=== PATIENT | female | born 1980 | race Caucasian/White ===

== ENCOUNTER → 2023-11-06 12:31 | Outpatient (REF) | payer BC, SELFPAY | LOC: WDC 12:31 | PROVIDERS: ATTENDING PHYSICIAN Obstetrics & Gynecology; FAMILY PHYSICIAN Family Medicine | DX: Z12.31 Encounter for screening mammogram for malignant neoplasm of breast (principal) | CPT/HCPCS: 77063; 77067 ==

== ENCOUNTER → 2024-02-22 16:42 | Outpatient (REF) | payer BC, SELFPAY | LOC: RAD 16:42 | PROVIDERS: ATTENDING PHYSICIAN Nurse Practitioner Family; FAMILY PHYSICIAN Family Medicine | DX: M54.50 Low back pain, unspecified (principal) | CPT/HCPCS: 72110; 72220 ==

== ENCOUNTER → 2024-11-16 13:52 | Outpatient (REF) | payer BC, SELFPAY | LOC: WDC 13:52 | PROVIDERS: ATTENDING PHYSICIAN Obstetrics & Gynecology; FAMILY PHYSICIAN Family Medicine | DX: Z12.31 Encounter for screening mammogram for malignant neoplasm of breast (principal) | CPT/HCPCS: 77063; 77067 ==

== ENCOUNTER 2024-12-19 07:59 | Emergency (ER) | payer BC, SELFPAY ==
[2024-12-19 08:00] VITALS: BP 132/76
--- NOTE | 2024-12-19 08:30 | ED.GENMED ---
History of Present Illness
General
Chief Complaint: Musculo-Skeletal Complaint
Source: patient
Time Seen by Provider: 12/19/24 08:04
History of Present Illness
History of Present Illness:
44-year-old female with no significant past medical history presents to the emergency department for evaluation after she was walking out of her house and accidentally stepped on a Nerf gun on the ground that she did not see, twisted her left ankle
causing her to fall to the ground. Since that time she has had some pain and swelling diffusely across the ankle but noting pain with palpation along the medial malleolus. She notes previous history of injury and surgery to the right ankle but no
previous injury to the left. No other injuries were. She did not take anything for the pain prior to arrival.
Past History
Past History
ED Past Medical History: None
ED Past Surgical History: Gynecological and Orthopedic
Social History
Tobacco: Non-smoker
Alcohol: None
Drug: None
Personal:
Living: with family
Review of Systems
Review of Systems
All Other Systems: ROS reviewed and negative except as documented in HPI and ROS
Phy Exam
Physical Exam
Physical Exam:
GENERAL: Alert , in no apparent distress
EYE: conjunctiva clear
Head: Normocephalic atraumatic
NECK: Supple,
ENT: mmm.
LUNGS: no acute respiratory distress
NEUROLOGICAL: Alert and oriented
SKIN: Warm and dry, skin intact.
MUSCULOSKELETAL: LLE: Mild STS laterally with minimal ttp, ttp moreso over the medial malleolus. No proximal tib/tif ttp. No tenderness at the base of the fifth metatarsal. Calcaneal tendon is intact. Easily palpable pedal and tibial pulse. Cap
refill less than 2 seconds and sensation is grossly intact to light touch. Remainder of extremities within normal limits
PSYCH: Normal and appropriate interaction.
Scores
Heart Failure Risk
Heart Failure Risk Score: Not Applicable
Heart Score for Chest Pain Patients
STEMI patient?: Not applicable
Withdrawal Assessment of Alcohol
Withdrawal Assessment Completed?: Not applicable
Course
Orders/Labs/Results
Orders:
Orders
12/19/24 08:04
CR Ankle - Left Min 3 Views Urgent
Comment:
Reason For Exam: pain, edema
CR Foot - Left Min 3 Views Urgent
Comment:
Reason For Exam: pain, edema
12/19/24 08:29
Ortho Boot Left- Treatment ONCE
Short or tall?: Short
12/19/24 08:30
Ibuprofen [Motrin] 600 mg PO NOW STA
Vital Signs
Initial and Last Documented VS:
Initial Vital Signs
Temp Pulse Resp BP Pulse Ox
98.6 F 55 18 132/76 100
12/19/24 08:00 12/19/24 08:00 12/19/24 08:00 12/19/24 08:00 12/19/24 08:00
Last Documented Vital Signs
Temp Pulse Resp BP Pulse Ox
98.6 F 55 18 132/76 100
12/19/24 08:00 12/19/24 08:00 12/19/24 08:00 12/19/24 08:00 12/19/24 08:32
MDM/Problems Addressed
Differential Diagnosis Includes:
Sprain
Fracture
Dislocation
Contusion
MDM/Problems Addressed:
44-year-old female presenting to the ER for evaluation of left ankle pain following an accidental injury this morning. X-rays of the foot and ankle ordered show a possible avulsion fracture off of the medial malleolus and questionably the talus.
Given the tenderness in this area we will place an orthopedic boot, patient already has crutches. NSAIDs/Tylenol as needed for pain. RICE recommendations discussed. Patient will follow-up with [facility] orthopedics where she has been seen as a
patient in the past. Stable for discharge home.
*Radiology
Radiology exam reviewed: preliminary read by ED provider (? avulsion fx off talus and medial malleolus)
*Pulse Oximetry
SaO2: 100
Oxygen Mode of Delivery: Room air
Patient hypoxic: no
*Critical Care Note
Total Time (30-74mins, 75-104mins- exclusive of procedures): Not Applicable
ED Attending Note
-
Portions of this chart may have been created with voice recognition software.� Occasional wrong word or��sound alike� substitutions may have occurred due to the inherent limitations of voice recognition software.
Discharge Plan
Departure
Patient Disposition: Home (Routine Discharge)
Date of Disposition: 12/19/24
Time of Disposition: 08:30
Patient with high blood pressure during this ER visit?: No
Discharge Problem:
Avulsion fracture of ankle
Instructions: Ankle Fracture (DC)
Prescriptions:
No Action
Vitamins Tablet
1 tab PO DAILY
Calcium + D Soft Chewable Tab Tab
1 tab PO DAILY
Referrals:
Nigel Farmer MD [Family Provider, Family Practice]
Interventions
Interventions:
*Risk Screen - Suicide Last Done: 12/19/24 08:00
*General Assessment Last Done: 12/19/24 08:00
*Neglect/Abuse Screening Last Done: 12/19/24 08:00
*ED COVID-19 Vaccine History Last Done: 12/19/24 08:08
*ED Influenza Vaccine History Last Done: 12/19/24 08:08
ED-Musculoskeletal Assessment Last Done: 12/19/24 08:08
Discharge Date and Time
Print Language: CAP[place]
[2024-12-19] MEDS: MOTRIN 600 MG PO (08:55)
== END 2024-12-19 09:04 | disposition home or self-care (01) ==
LOC: EMR 07:59
PROVIDERS: EMERGENCY PHYSICIAN Emergency Medicine; FAMILY PHYSICIAN Family Medicine
DX: S82.892A Other fracture of left lower leg, initial encounter for closed fracture (principal); X50.1XXA Overexertion from prolonged static or awkward postures, initial encounter
CPT/HCPCS: 99283; 73610; 73630